=== PATIENT | female | born 1960 | race African-American/Black ===

== ENCOUNTER → 2016-05-21 | Outpatient (CLI) | payer BC ==
--- NOTE | 2016-05-21 11:00 | KCIC ---
PROCEDURE Maxillofacial CT without contrast. HISTORY Chronic sinusitis, sinus pressure, congestion, headaches TECHNIQUE Noncontrast CT imaging was performed of maxillofacial region, multiplanar reconstruction images submitted.Exposure: One or more of the following individualized dose reduction techniques were utilized for this exam: 1. Automated exposure control. 2. Adjustment of the mA and/or kV according to patient size. 3. Use of iterative reconstruction technique. COMPARISON None available FINDINGS There have been bilateral nasal antral windows and partial ethmoidectomies. There are no air-fluid levels of the paranasal sinuses. There is limited pneumatization of the frontal sinus which is aerated. There is negligible left maxillary sinus mucosal thickening on the order of 1 millimeter. There is likely mucous retention cyst of the anterior, inferior right maxillary sinus on the order of 20 millimeters transverse, density measurements 40 Hounsfield units, smaller focus more medially on the order of 5 millimeters. Mastoid air cells are aerated. IMPRESSION There is a large, probable somewhat complex mucous retention cyst near the floor of the right maxillary sinus, negligible left maxillary sinus mucosal thickening. There are no air-fluid levels of the paranasal sinuses. Electronically signed by: Stepan Dale MD (May 21, 2016 10:59:47)
== END | disposition home or self-care (01) ==
LOC: KCIC CT 09:56
PROVIDERS: ATTEND Otolaryngology
DX: J32.9 Chronic sinusitis, unspecified (principal)
CPT/HCPCS: 70486

== ENCOUNTER → 2020-07-07 | Outpatient (CLI) | payer MEDICARE, BC ==
--- NOTE | 2020-07-07 11:54 | KCIC ---
EXAM: Bilateral knees, standing view. HISTORY: Pain. COMPARISON: 06/14/2014. FINDINGS: A frontal view both knees is obtained. There is no fracture, dislocation or subluxation. Th ere is minimal bilateral medial compartment joint space narrowing and minimal right medial compartmen t spurring. IMPRESSION: No acute osseous finding. Electronically signed by: Dionne Nieves MD (07/07/2020 11:52 AM) [id number]
--- NOTE | 2020-07-07 11:55 | KCIC ---
EXAM: Bilateral ankles, 3 views. HISTORY: Pain. COMPARISON: None. FINDINGS: 3 views of both ankles are obtained. There are tiny ossicles inferior to the bilateral medi al malleoli, likely due to sequela of remote injury. There is no convincing acute fracture. The ankle mortises are intact. There is a tiny right plantar spur. There is no osteochondral lesion. There is minimal enthesopathy at the Achilles tendon insertions. IMPRESSION: 1. No acute osseous finding. 2. Tiny right plantar spur. Electronically signed by: Dionne Nieves MD (07/07/2020 11:53 AM) [id number]
== END ==
LOC: KCIC 09:18
PROVIDERS: ATTEND Physical Medicine & Rehabilitation
DX: M17.0 Bilateral primary osteoarthritis of knee (principal); M19.072 Primary osteoarthritis, left ankle and foot; M19.071 Primary osteoarthritis, right ankle and foot; M77.31 Calcaneal spur, right foot; M76.62 Achilles tendinitis, left leg; M76.61 Achilles tendinitis, right leg
CPT/HCPCS: 73565; 73610-50

== ENCOUNTER → 2020-11-10 | Outpatient (CLI) | payer BC, MEDICARE ==
--- NOTE | 2020-11-10 15:23 | KCIC ---
EXAM: Maxillofacial bone CT without contrast. HISTORY: Sinusitis. TECHNIQUE: Computed tomographic images of the maxillofacial bones were obtained without contrast. *One or more of the following individualized dose reduction techniques were utilized for this examina tion: 1. Automated exposure control. 2. Adjustment of the mA and/or kV according to patient size. 3. Use of iterative reconstruction technique. COMPARISON: 05/21/2016. FINDINGS: There is evidence of bilateral maxillary antrostomy/uncinectomy surgery. There is mild bila teral ethmoid and mild to moderate left maxillary sinus mucosal thickening. There are small right max illary sinus mucous retention cyst. There is no significant nasal septal deviation. There is no sinus air-fluid level. There is left maxillary sinus wall thickening due to the sequela of chronic sinusit is. The orbits are unremarkable. The mastoid air cells are unremarkable. The temporomandibular joints are intact. The visualized portions the brain and calvarium are unremarkable. IMPRESSION: 1. Bilateral maxillary antrostomy/uncinectomy changes. 2. Mild bilateral ethmoid and mild to moderate left maxillary sinus mucosal thickening and small righ t maxillary sinus mucous retention cysts. This is increased compared to the prior study. 3. Left maxillary sinus wall thickening due to the sequela of chronic sinusitis. Electronically signed by: Dionne Nieves MD (11/10/2020 3:21 PM) [id number]
== END ==
LOC: KCIC CT 14:19
PROVIDERS: ATTEND Nurse Practitioner
DX: J32.0 Chronic maxillary sinusitis (principal)
CPT/HCPCS: 70486